=== PATIENT | male | born 1965 | race Caucasian/White ===

== ENCOUNTER 2016-11-13 14:11 | Emergency (ER) | payer OTHER, BC ==
[~2016-11-13] VITALS: Ht 193 cm; Wt 111.1 kg
[~2016-11-13 14:11] MED LIST: ADVAIR DISKUS 21 DSK INH; CLARITIN10 MG PO; PAXIL10 MG PO; PRINZIDE 12.5 M1 TAB PO
[2016-11-13] MEDS ORDERED: CEPHALEXIN500 M1 PO (15:51)
== END 2016-11-13 15:53 | disposition home or self-care (01) ==
LOC: ED 14:11
DX: S61.211A Laceration without foreign body of left index finger without damage to nail, initial encounter (principal); Z79.899 Other long term (current) drug therapy; W45.8XXA Other foreign body or object entering through skin, initial encounter; Y93.89 Activity, other specified; Y92.89 Other specified places as the place of occurrence of the external cause; Y99.8 Other external cause status